=== PATIENT | female | born 1990 | race Two or more races ===

== ENCOUNTER 2023-01-31 12:35 | Observation (INO) | payer MEDICAID, OTHER ==
[2023-01-31] MEDS ORDERED: PREN-96 PO (14:18)
== END 2023-01-31 14:28 | disposition home or self-care (01) ==
LOC: LDRP 12:35
PROVIDERS: ADMIT Obstetrics & Gynecology; ATTEND Obstetrics & Gynecology
DX: O36.8130 Decreased fetal movements, third trimester, not applicable or unspecified (principal); O99.891 Other specified diseases and conditions complicating pregnancy; M54.50 Low back pain, unspecified; R10.9 Unspecified abdominal pain; Z3A.38 38 weeks gestation of pregnancy
CPT/HCPCS: 59025; 76818; 81002; 94760; G0378

== ENCOUNTER 2023-02-09 22:42 | Inpatient (IN) | payer MEDICAID ==
[~2023-02-09] VITALS: Ht 162.6 cm; Wt 101.6 kg
[~2023-02-09 22:42] MED LIST: PREN-96 PO
[2023-02-09 23:48] LABS: Amphetamine Screen, Urine Neg (NEGATIVE); Barbiturate Scree,Urine Neg (NEGATIVE); Benzodiazephine Screen, Urine Neg (NEGATIVE); Cocaine Screen, Urine Neg (NEGATIVE); Opiate Scree,Urine Neg (NEGATIVE)
[2023-02-09 23:49] LABS: Cannabinoid Screen, Urine Neg (NEGATIVE); Phencyclidine Screen, Urine Neg (NEGATIVE)
[2023-02-09 23:54] LABS: Urine Bacteria NONE SEEN /hpf (None Seen); Urine Blood 1+ /uL (Negative); Urine Clarity HAZY (Clear); Urine Color Yellow (Yellow); Urine Mucus FEW (None Seen); Urine Protein, UAD 1+ (Negative); Urine Specific Gravity 1.031 (1.001-1.035); Urine WBC 12 /hpf (0 - 5)
[2023-02-10 00:08] LABS: Fern Testing Positive
[2023-02-10] MEDS ORDERED: PENICILLIN G POT 5MIL/D5 50ML 50 ML IV ONE (00:15)
[2023-02-10] MEDS ORDERED: DERMOPLAST 60ML BOTTLE TOP PRN (00:15)
[2023-02-10] MEDS ORDERED: LIDOCAINE 2%HCL (LOCAL ANESTH.) INJ 20ML MDV IJ PRN (00:15)
[2023-02-10] MEDS ORDERED: PROMETHAZINE HCL 25 MG/ML 1ML IV PRN (00:15)
[2023-02-10] MEDS ORDERED: PHISODERM TOP SOLN 240ML BTL TOP PRN (00:15)
[2023-02-10] MEDS ORDERED: WITCH HAZEL-GLYCERIN PAD TOP PRN (00:15)
[2023-02-10 00:43] LABS: Basophils # (auto) 0.1 10 ^3/uL (0-0.2); Basophils % (auto) 0.9 % (0.0-2.0); Eosinophils # (auto) 0.2 10 ^3/uL (0-0.8); Eosinophils % (auto) 2.2 % (0.0-7.0); Hematocrit 33.7 % (36.0-46.0); Hemoglobin 11.1 g/dL (12.2-16.2); Lymphocytes # (auto) 2.7 10 ^3/uL (0.4-5.4); Lymphocytes % (auto) 25.2 % (10.0-50.0); Mean Corpuscular Hemoglobin 29.8 pg (28.0-32.0); Mean Corpuscular Hgb Conc. 32.9 g/dL (32.0-36.0); Mean Corpuscular Volume 90.4 fL (80.0-100.0); Monocytes # (auto) 0.5 10 ^3/uL (0-1.3); Neutrophils # (auto) 7.2 10 ^3/uL (1.6-8.6); Neutrophils % (auto) 66.7 % (37.0-80.0); Red Blood Cells 3.73 10^6/uL (4.0-5.20); Red Cell Distribution Width 14.9 % (11.8-14.3); White Blood Cell 10.8 10^3/uL (4.4-10.8)
[2023-02-10 00:55] LABS: INR 0.93 (0.9-1.15); Partial Thromboplastin Time 25.7 SEC (24.5-34.5); Prothrombin Time 9.8 sec (9.3-11.8)
[2023-02-10 00:56] LABS: Albumin 3.6 g/dL (3.2-4.8); Alkaline Phosphatase 166 U/L (46-116); Anion Gap 9.2 (5-15); Aspartate Aminotransferase 8 U/L (13-40); BUN/Creatinine Ratio 8.8 (10.0-20.0); Bilirubin, Total 0.4 mg/dL (0.2-1.0); Blood Urea Nitrogen 5 mg/dL (9-23); Calcium 8.9 mg/dL (8.7-10.4); Carbon Dioxide 18.8 mmol/L (20-30); Chloride 108 mmol/L (98-107); Glucose 108 mg/dL (74-106); Potassium 3.7 mmol/L (3.5-5.1); Sodium 136 mmol/L (136-145); Total Protein 6.5 g/dL (5.7-8.2)
[2023-02-10] MEDS: LACTATED RINGER'S 1,000 ML IV SCH ×2 (01:24→02:32)
[2023-02-10 01:31] LABS: Alanine Aminotransferase < 9 U/L (7-40)
[2023-02-10] MEDS ORDERED: PENICILLIN G POT 5MILLION UNIT VIAL ONE (05:34)
[2023-02-10] MEDS ORDERED: STERILE WATER 10 ML ONE (05:34)
[2023-02-10] MEDS: PENICILLIN G POTASSIUM 2,500,000 UNITS in D5W 5% 50 ML IV SCH ×2 (05:41→10:01)
[2023-02-10] MEDS ORDERED: fentaNYL CITRATE 100 MCG/2 ML VL IV ONE ×2 (06:00→06:45)
[2023-02-10] MEDS ORDERED: LACTATED RINGER'S 1,000 ML IV ONE (06:45)
[2023-02-10] MEDS ORDERED: NALOXONE HCL 0.4 MG/ML VIAL IV ONE (06:45)
[2023-02-10] MEDS ORDERED: LIDOCAINE HCL 2 %PF INJ 10ML AMP IJ ONE (06:45)
[2023-02-10] MEDS ORDERED: ROPIVACAINE HCL 200 ML EPI SCH (06:45)
[2023-02-10] MEDS ORDERED: ePHEDrine SULFATE 50 MG/ML AMP IV ONE (06:45)
[2023-02-10] MEDS ORDERED: LACT. RINGERS/OXYTOCIN 20UNITS 500 ML IV ONE ×2 (07:00→07:30)
[2023-02-10] MEDS ORDERED: FAMOTIDINE (10MG/ML) 2ML VL IV PRN (08:00)
[2023-02-10] MEDS ORDERED: METHYLERGONOVINE MALEATE 0.2 MG/ML AMP IM ONE (11:00)
[2023-02-10] MEDS ORDERED: miSOPROStol 100 mcg TAB ONE (11:00)
[2023-02-10] MEDS ORDERED: METHYLERGONOVINE MALEATE 0.2 MG/ML AMP IM PRN (11:15)
[2023-02-10] MEDS ORDERED: ACETAMINOPHEN 325 MG TAB PO PRN (11:45)
[2023-02-10] MEDS ORDERED: ONDANSETRON ODT 4 MG TAB PO PRN (11:45)
[2023-02-10] MEDS ORDERED: PENICILLIN G POTASSIUM 2,500,000 UNITS in D5W 5% 50 ML IV SCH (13:30)
[2023-02-10 15:00] VITALS: BP 121/74; PULSE 68; RESP 18; TEMP 98.6; O2SAT 98
[2023-02-10] MEDS: IBUPROFEN 600 MG TAB PO PRN (16:51)
[2023-02-10 19:25] VITALS: BP 112/68; PULSE 70; RESP 18; TEMP 97.7; O2SAT 96
[2023-02-11 03:20] VITALS: BP 113/71; PULSE 73; RESP 18; TEMP 97.6; O2SAT 98
[2023-02-11] MEDS: IBUPROFEN 600 MG TAB PO PRN (03:55)
[2023-02-11 07:03] VITALS: BP 107/72; PULSE 69; RESP 18; TEMP 97.9; O2SAT 98
[2023-02-11 07:06] LABS: RPR Non Reactive (Non Reactive)
[2023-02-11 11:20] VITALS: BP 114/68; PULSE 66; RESP 16; TEMP 98.6; O2SAT 97
[2023-02-12 20:06] LABS: Treponema pallidum Ab (FTA-Ab) Non Reactive (Non Reactive)
== END 2023-02-11 14:15 | disposition home or self-care (01) | DRG 560 ==
LOC: LDRP 22:42 → OBSVTOIN 02-10 00:10 → LDRP 02-10 00:49
PROVIDERS: ADMIT Obstetrics & Gynecology; ATTEND Obstetrics & Gynecology
PROC: 10E0XZZ Delivery of Products of Conception, External Approach (ICD-10-PCS; principal; 2023-02-10)
PROC: 3E0R3BZ Introduction of Anesthetic Agent into Spinal Canal, Percutaneous Approach (ICD-10-PCS; 2023-02-10)
PROC: 00HU33Z Insertion of Infusion Device into Spinal Canal, Percutaneous Approach (ICD-10-PCS; 2023-02-10)
DX: O23.43 Unspecified infection of urinary tract in pregnancy, third trimester (principal); Z37.0 Single live birth; N39.0 Urinary tract infection, site not specified; Z3A.39 39 weeks gestation of pregnancy
CPT/HCPCS: 36415; 59025; 59409; 62282; 80053; 80307; 81001; 81002; 84112; 85025; 85610; 85730; 86592; 86850; 86900; 86901; 94760; 96360; 96361; 96365; 96366; G0378; J2540; J2590; J3490; J7060